=== PATIENT | male | born 1970 | race Caucasian/White ===

== ENCOUNTER → 2017-09-01 | Outpatient (CLI) | payer MEDICARE, OTHER ==
[~2017-09-01] MED LIST: AMIT25; DICL75ER PO; DOXY100 PO; EPIN.3I IM; ESOM20 PO; FAMO20 PO; FLUO10 PO; FLUO20 PO; HYDACE5 PO; Naprosyn500 MG PO; PANT20 PO; PRED10 PO; STELARA45 MG/0.5 SQ; [UNRECOGNIZED DRUG - OTHER]
[2017-09-01 18:53] LABS: Appearance, Urine Clear (Clear); Bilirubin, Urine Neg (Neg); Blood, Urine 2+ (Neg); Color, Urine Yellow (P-Yellow); Glucose Qualitative, Urine Neg (Neg); Ketones, Urine Neg (Neg); Leukocyte Esterase, Urine Neg (Neg); Nitrite, Urine Neg (Neg); Protein, Urine 1+ (Neg); Specific Gravity, Urine 1.015 (1.003-1.022); Urobilinogen, Urine 1+ (Normal); pH, Urine 6.5 (5.0-8.0)
[2017-09-01 19:03] LABS: Mucus Light (0-Heavy); White Blood Cells, Urine 0-2 /hpf (0-5)
[2017-09-01 19:04] LABS: Bacteria Few /hpf; Squamous Epithelial Cells Few /hpf (Few)
== END | disposition home or self-care (01) ==
LOC: LAB EV 15:16 → LAB SHORT 15:16
PROVIDERS: Internal Medicine
DX: R31.9 Hematuria, unspecified (principal)
CPT/HCPCS: 81001; 87086

== ENCOUNTER → 2019-01-16 | Outpatient (CLI) | payer MEDICARE, OTHER ==
[2019-01-23 15:06] LABS: A/G RATIO 0.8 (0.7-1.7); ALBUMIN 3.3 g/dL (2.9-4.4); ALPHA-1-GLOBULIN 0.3 g/dL (0.0-0.4); ALPHA-2-GLOBULIN 0.7 g/dL (0.4-1.0); BETA GLOBULIN 1.1 g/dL (0.7-1.3); GAMMA GLOBULIN 1.7 g/dL (0.4-1.8); GLOBULIN, TOTAL 3.9 g/dL (2.2-3.9); M-SPIKE Not Observed g/dL (Not Observed); PROTEIN, TOTAL, SERUM 7.2 g/dL (6.0-8.5)
== END | disposition home or self-care (01) ==
LOC: LAB SHORT 12:30 → LAB 12:30
PROVIDERS: Internal Medicine Hematology & Oncology
DX: R77.1 Abnormality of globulin (principal)
CPT/HCPCS: 84165

== ENCOUNTER 2019-04-13 10:49 | Day surgery (SDC) | payer MEDICARE, OTHER ==
[~2019-04-13] VITALS: Ht 157.5 cm; Wt 94.3 kg
[~2019-04-13 10:49] MED LIST changes: +LOSA50
--- NOTE | 2019-04-13 13:21 | NUR ---
04/13/19 1321 Karin De La Torre PT AWARE OF DELAYED START TIME DUE TO PREVIOUS CASES RUNNING LONGER THAN EXPECTED. CALL LIGHT WITHIN REACH. KEITH, MOTHER, AT BEDSIDE
--- NOTE | 2019-04-13 15:09 | NUR ---
04/13/19 1509 Karin De La Torre O2 10L VIA POM MASK
== END 2019-04-13 15:12 | disposition home or self-care (01) ==
LOC: ORSCSDS 10:49
DX: D64.9 Anemia, unspecified (principal); K31.7 Polyp of stomach and duodenum; K63.5 Polyp of colon; K64.8 Other hemorrhoids; F84.0 Autistic disorder; K21.9 Gastro-esophageal reflux disease without esophagitis; G47.33 Obstructive sleep apnea (adult) (pediatric); I10 Essential (primary) hypertension; J45.909 Unspecified asthma, uncomplicated; Z79.899 Other long term (current) drug therapy
CPT/HCPCS: 88305; 88341; 88342; J2001; J2250; J2704; J7120

== ENCOUNTER 2019-08-17 22:55 | Emergency (ER) | payer MEDICARE, OTHER ==
[~2019-08-17] VITALS: Ht 154.9 cm; Wt 94.8 kg
[2019-08-17] MEDS ORDERED: KEFLEX500 MG PO (23:58)
== END 2019-08-18 02:03 | disposition home or self-care (01) ==
LOC: ER 22:55
DX: K11.20 Sialoadenitis, unspecified (principal); L40.9 Psoriasis, unspecified; Z88.0 Allergy status to penicillin; Z91.048 Other nonmedicinal substance allergy status; Z79.2 Long term (current) use of antibiotics
CPT/HCPCS: 99282

== ENCOUNTER 2022-12-25 14:53 | Emergency (ER) | payer MEDICARE, OTHER ==
[~2022-12-25] VITALS: Ht 160 cm; Wt 96.2 kg
[~2022-12-25 14:53] MED LIST changes: +KEFLEX500 MG PO; +LOSA50 PO; +PANT40 PO; +STELARA90 MG/1 ML SC
[2022-12-25 15:04] VITALS: BP 151/74
[2022-12-25 15:36] LABS: BASOPHILS ABSOLUTE AUTO 0.07 K/mm3 (0.00-0.23); BASOPHILS PERCENT AUTO 1 % (0-2); EOSINOPHILS ABSOLUTE AUTO 0.37 K/mm3 (0.00-0.68); EOSINOPHILS PERCENT AUTO 4 % (0-6); Hematocrit 38.2 % (37.0-53.0); Hemoglobin 13.2 g/dL (13.5-17.5); IMMATURE GRAN ABSOLUTE AUTO 0.03 K/mm3 (0.00-0.10); IMMATURE GRAN PERCENT AUTO 0 % (0-1); LYMPHOCYTES ABSOLUTE AUTO 1.68 K/mm3 (0.84-5.20); LYMPHOCYTES PERCENT AUTO 16 % (21-46); MONOCYTES ABSOLUTE AUTO 0.95 K/mm3 (0.16-1.47); MONOCYTES PERCENT AUTO 9 % (4-13); Mean Corpuscular HGB 29.5 pg (26.0-34.0); Mean Corpuscular HGB Conc 34.6 g/dL (31.5-36.5); Mean Corpuscular Volume 86 fL (80-100); Mean Platelet Volume 10.2 fL (9.1-12.4); NEUTROPHILS ABSOLUTE AUTO 7.38 K/mm3 (1.96-9.15); NEUTROPHILS PERCENT AUTO 70 % (41-73); Platelet Count 192 K/mm3 (150-400); RDW Coefficient Variation 13.4 % (11.7-14.2); RDW Standard Deviation 40.9 fL (35.1-46.3); Red Blood Cell Count 4.47 M/mm3 (4.30-5.90); White Blood Cell Count 10.48 K/mm3 (4.00-11.30)
[2022-12-25 16:07] LABS: Albumin, Blood 3.4 g/dL (3.4-5.0); Albumin/Globulin Ratio 0.8 (0.8-1.8); Bilirubin, Total 0.8 mg/dL (0.1-1.0); Bun/Creatinine Ratio 16.7 (12.0-20.0); Calcium, Blood 9.1 mg/dL (8.5-10.1); Creatinine, Blood 0.84 mg/dL (0.60-1.20); Globulin, Blood 4.2 g/dL (2.2-4.0); Potassium, Blood 4.3 mmol/L (3.5-5.5); Total Protein, Blood 7.6 g/dL (6.4-8.2)
[2022-12-25] MEDS ORDERED: LEFLUNOMIDE20 M2 PO (16:56)
[2022-12-25] MEDS ORDERED: PROZAC2010 PO (16:56)
[2022-12-25 16:58] LABS: Source, Urine Clean Catch
[2022-12-25] MEDS ORDERED: SIMPONI AR50 MG/4 M1 UD (16:59)
[2022-12-25 17:21] LABS: Bilirubin, Urine Neg (Neg); Blood, Urine 1+ (Neg); Color, Urine Yellow (P-Yellow); Glucose Qualitative, Urine Neg (Neg); Ketones, Urine Neg (Neg); Leukocyte Esterase, Urine Neg (Neg); Nitrite, Urine Neg (Neg); Protein, Urine 1+ (Neg); Specific Gravity, Urine 1.025 (1.003-1.022); Urobilinogen, Urine 1+ (Normal)
[2022-12-25 17:49] LABS: Appearance, Urine Hazy (Clear)
[2022-12-25 17:50] LABS: Amorphous Light (0-Heavy); Hyaline Casts 0-2 /lpf (0-2); Mucus Mod (0-Heavy); Red Blood Cells, Urine 0-2 /hpf (0-2); White Blood Cells, Urine 0-2 /hpf (0-5)
[2022-12-25 17:51] LABS: Bacteria Mod /hpf; Granular Casts 0-2 /lpf (0); Squamous Epithelial Cells Few /hpf (Few)
== END 2022-12-25 19:05 | disposition home or self-care (01) ==
LOC: ER 14:53
PROVIDERS: Physician Assistant
DX: R10.9 Unspecified abdominal pain (principal); M54.50 Low back pain, unspecified; Z88.0 Allergy status to penicillin; Z88.8 Allergy status to other drugs, medicaments and biological substances; Z91.018 Allergy to other foods; Z79.899 Other long term (current) drug therapy; E78.5 Hyperlipidemia, unspecified; K21.9 Gastro-esophageal reflux disease without esophagitis
CPT/HCPCS: 74177; 80053; 81001; 83690; 85025; 87077; 87086; 87147; 87186; 96374-59; 99284-25; J1885; Q9967

== ENCOUNTER 2023-09-18 19:45 | Emergency (ER) | payer MEDICARE, OTHER ==
[~2023-09-18] VITALS: Ht 157.5 cm; Wt 93.4 kg
[~2023-09-18 19:45] MED LIST changes: +LEFLUNOMIDE20 M2 PO; +PROZAC2010 PO; +SIMPONI AR50 MG/4 M1 UD
[2023-09-18 19:52] VITALS: BP 172/78
== END 2023-09-18 21:33 | disposition home or self-care (01) ==
LOC: ER 19:45
DX: T78.40XA Allergy, unspecified, initial encounter (principal); R53.82 Chronic fatigue, unspecified; R41.0 Disorientation, unspecified; K21.9 Gastro-esophageal reflux disease without esophagitis; L40.9 Psoriasis, unspecified; Z79.899 Other long term (current) drug therapy; Z88.0 Allergy status to penicillin; Z91.018 Allergy to other foods; Z91.048 Other nonmedicinal substance allergy status
CPT/HCPCS: 99282

== ENCOUNTER → 2023-10-15 | Outpatient (CLI) | payer MEDICARE, OTHER | END | disposition home or self-care (01) | LOC: LAB 13:08 → LAB SHORT 13:08 | PROVIDERS: Internal Medicine Hematology & Oncology | DX: D50.9 Iron deficiency anemia, unspecified (principal) | CPT/HCPCS: 82728; 83540; 83550 ==

== ENCOUNTER → 2024-06-13 | Outpatient (CLI) | payer MEDICARE, OTHER | END | disposition home or self-care (01) | LOC: LAB SHORT 17:06 → LAB 17:06 | DX: J34.89 Other specified disorders of nose and nasal sinuses (principal) | CPT/HCPCS: 87070; 87077; 87147; 87186 ==